=== PATIENT | male | born 1975 | race Caucasian/White ===

== ENCOUNTER 2019-06-23 17:20 | Emergency (ER) | payer OTHER ==
[~2019-06-23] VITALS: Ht 180.3 cm; Wt 95.3 kg
== END 2019-06-23 19:32 | disposition home or self-care (01) ==
LOC: ER 17:20
DX: S81.822A Laceration with foreign body, left lower leg, initial encounter (principal); W45.8XXA Other foreign body or object entering through skin, initial encounter; Y93.89 Activity, other specified; Y92.89 Other specified places as the place of occurrence of the external cause; Y99.8 Other external cause status

== ENCOUNTER → 2019-07-03 | Emergency (ER) | payer OTHER ==
[~2019-07-03] VITALS: Ht 180.3 cm; Wt 95.3 kg
== END | disposition home or self-care (01) ==
LOC: ER 08:07
DX: Z48.02 Encounter for removal of sutures (principal)